=== PATIENT | female | born 1975 | race Caucasian/White ===

== ENCOUNTER 2018-11-06 00:58 | Emergency (ER) | payer BC ==
--- NOTE | 2018-11-06 01:39 | EDM.PDOC ---
ED HPI GENERAL MEDICAL PROBLEM - General Chief Complaint: Flank Pain Stated Complaint: POSS KIDNEY STONE Time Seen by Provider: 11/06/18 01:39 - History of Present Illness INITIAL COMMENTS - FREE TEXT/NARRATIVE: 43-year-old female presents emergency room with right flank and groin pain. This is been going on for a day hasn't really been all that bad it reminds her of her last kidney stone however. She has not had any fevers chills no burning or frequency with urination. No nausea no vomiting. It's probably been 1012 years since her last kidney stone. Right Flank Pain Score (Numeric/FACES): 5 - Related Data Allergies Allergy/AdvReac Type Severity Reaction Status Date / Time morphine Allergy Vomiting Verified 11/06/18 01:07 Home Meds: Home Meds Acetaminophen/HYDROcodone [[place] 325-5 MG] 1 - 2 tab PO Q6H PRN #12 tablet 11/06 [Rx] Ibuprofen [Advil] 400 mg PO ONCALL PRN 11/06/18 [History] Past Medical History HEENT History: Reports: Impaired Vision Other HEENT History: Wears glasses Genitourinary History: Reports: Renal Calculus Musculoskeletal History: Reports: Fracture - Past Surgical History Musculoskeletal Surgical History: Reports: Arthroscopic Knee Social & Family History - Tobacco Use Smoking Status *Q: Never Smoker - Recreational Drug Use Recreational Drug Use: No ED ROS GENERAL - Review of Systems Review Of Systems: See Below Constitutional: Reports: No Symptoms HEENT: Reports: No Symptoms Respiratory: Reports: No Symptoms Cardiovascular: Reports: No Symptoms, Palpitations GI/Abdominal: Reports: No Symptoms : Reports: Flank Pain ED EXAM, GI/ABD - Physical Exam Exam: See Below Exam Limited By: No Limitations General Appearance: Alert, No Apparent Distress Head: Atraumatic, Normocephalic Neck: Normal Inspection, Supple, Non-Tender, Full Range of Motion Respiratory/Chest: No Respiratory Distress, Lungs Clear, Normal Breath Sounds Cardiovascular: Normal Peripheral Pulses, Regular Rate, Rhythm, No Edema GI/Abdominal Exam: Normal Bowel Sounds, Soft, Other (Palpation on the right side does not make her pain any worse no rigidity no rebound or guarding noted) Back Exam: Normal Inspection, Full Range of Motion, CVA Tenderness (L) Course - Vital Signs Last Recorded V/S: Last Vital Signs Temp 36.5 C 11/06/18 01:08 Pulse 69 11/06/18 01:08 Resp 17 11/06/18 01:08 BP 133/80 11/06/18 01:08 Pulse Ox 96 11/06/18 01:08 - Orders/Labs/Meds Orders: Active Orders 24 hr Category Date Time Status Abdomen Pelvis wo Cont [CT] Stat Exams 11/06/18 01:44 Taken Labs: Laboratory Tests 11/06/18 11/06/18 11/06/18 Range/Units 01:20 01:55 01:55 WBC 9.09 (3.98-10.04) K/mm3 RBC 4.43 (3.98-5.22) M/mm3 Hgb 13.7 (11.2-15.7) gm/dl Hct 40.3 (34.1-44.9) % MCV 91.0 (79.4-94.8) fl MCH 30.9 (25.6-32.2) pg MCHC 34.0 (32.2-35.5) g/dl RDW Std Deviation 42.2 (36.4-46.3) fL Plt Count 285 (182-369) K/mm3 MPV 8.9 L (9.4-12.3) fl Neutrophils % (Manual) 73 H (40-60) % Band Neutrophils % 0 (0-10) % Lymphocytes % (Manual) 17 L (20-40) % Atypical Lymphs % 0 % Monocytes % (Manual) 8 (2-10) % Eosinophils % (Manual) 1 (0.7-5.8) % Basophils % (Manual) 1 (0.1-1.2) Platelet Estimate Adequate Plt Morphology Comment Normal RBC Morph Comment Normal Sodium 139 (136-145) mEq/L Potassium 4.2 (3.5-5.1) mEq/L Chloride 106 (98-107) mEq/L Carbon Dioxide 26 (21-32) mEq/L Anion Gap 11.2 (5-15) BUN 23 H (7-18) mg/dL Creatinine 0.9 (0.55-1.02) mg/dL Est Cr Clr Drug Dosing 69.60 mL/min Estimated GFR (MDRD) > 60 (>60) mL/min BUN/Creatinine Ratio 25.6 H (14-18) Glucose 109 H (74-106) mg/dL Calcium 9.2 (8.5-10.1) mg/dL Urine Color Yellow (Yellow) Urine Appearance Clear (Clear) Urine pH 5.0 (5.0-8.0) Ur Specific [place] > or = 1.030 (1.005-1.030) Urine Protein Negative (Negative) Urine Glucose (UA) Negative (Negative) Urine Ketones Negative (Negative) Urine Occult Blood Negative (Negative) Urine Nitrite Negative (Negative) Urine Bilirubin Negative (Negative) Urine Urobilinogen 0.2 (0.2-1.0) Ur Leukocyte Esterase Trace H (Negative) Urine RBC 0-5 (0-5) /hpf Urine WBC 0-5 (0-5) /hpf Ur Squamous Epith Cells 0-5 (0-5) /hpf Amorphous Sediment Few H (NOT SEEN) /hpf Urine Bacteria Few (FEW) /hpf Urine Mucus Rare (FEW) /hpf Meds: Medications Discontinued Medications Generic Name Dose Route Start Last Admin Trade Name Freq PRN Reason Stop Dose Admin Ketorolac Tromethamine 15 mg 11/06/18 02:32 11/06/18 02:41 Toradol IVPUSH 11/06/18 02:33 15 mg ONETIME ONE Administration - Re-Assessments/Exams Free Text/Narrative Re-Assessment/Exam: 11/06/18 03:26 2 mm kidney stone at the right UVJ renal function looks good no signs of kidney infection or bladder infection. Departure - Departure Time of Disposition: 03:26 Disposition: Home, Self-Care 01 Clinical Impression: Ureteric colic - Discharge Information Prescriptions: Acetaminophen/HYDROcodone [[place] 325-5 MG] 1 - 2 tab PO Q6H PRN #12 tablet PRN Reason: Pain Referrals: Faye Brand MD [Primary Care Provider] - Forms: ED Department Discharge Additional Instructions: Return to the emergency room with any questions or problems he is medication as directed. Tylenol may work by itself however keep track of your daily Tylenol intake and it should not exceed 4000 mg a day. Remember the pain pills have some Tylenol in them as well. Strain the urine and capture the stone bring it to your regular doctor to have analyzed - My Orders Last 24 Hours: My Active Orders 11/06/18 01:44 Abdomen Pelvis wo Cont [CT] Stat - Assessment/Plan Last 24 Hours: My Active Orders 11/06/18 01:44 Abdomen Pelvis wo Cont [CT] Stat
[2018-11-06] MEDS ORDERED: Ketorolac 15 MG/ML SDV IVPUSH ONE (02:32)
--- NOTE | 2018-11-06 09:39 | CT ---
CT abdomen and pelvis Technique: Multiple axial sections were obtained from above the dome of the diaphragm inferiorly through the pubic symphysis. Intravenous and oral contrast was not utilized. Study has been performed as a ureteral stone protocol. Comparison: No previous CT abdomen and pelvis exam. Findings: Right ureter is mildly prominent in size. Slight inflammatory change is noted around the right UPJ. Right kidney appears slightly swollen. These findings are caused by an obstructing 2 mm stone located within the distal right ureter at the UVJ. No other abnormal calcifications are seen along the course of the ureters. No abnormal calcifications are seen within the kidneys. Visualized lung bases show nothing acute. Noncontrast appearance of the liver and spleen appears within normal limits. Adrenal glands show no nodule. Pancreas shows no discrete abnormality. Gallbladder contains no calcified gallstones. Aorta shows no aneurysm. No retroperitoneal adenopathy or mesenteric abnormalities are seen. No pelvic mass or adenopathy is identified. Appendix is partially visualized and appears normal in size. Bone window settings were reviewed which appear within normal limits for the patient's age. Impression: 1. Two mm obstructing stone within the distal right ureter located at the UVJ. 2. No other acute abnormality is appreciated on noncontrast CT study of the abdomen and pelvis. Diagnostic code #3 I agree with preliminary report from [facility], finalized on 11/06/18, 3:16 AM Central Time
== END 2018-11-06 03:36 | disposition home or self-care (01) ==
LOC: JD.ED 00:58
DX: N23 Unspecified renal colic (principal); Z88.5 Allergy status to narcotic agent
CPT/HCPCS: 36415; 74176; 80048; 81001; 85007; 85027; 96374; 99284; J1885; 99283